=== PATIENT | male | born 1990 | race Caucasian/White ===

== ENCOUNTER 2018-03-23 18:27 | Emergency (ER) | payer OTHER, SELFPAY ==
[2018-03-23 18:27] VITALS: BP 137/90; PULSE 70; RESP 16; TEMP 36.8; O2SAT 99; BMI 27.1
--- NOTE | 2018-03-23 18:57 | RAD_ITS ---
STUDY: X-RAY - LEFT ANKLE REASON FOR EXAM: Male, 27 years old. Left-sided ankle pain and swelling after fall. TECHNIQUE: 3 view(s) of the ankle. COMPARISON: Prior comparison studies are not available for review at this time. FINDINGS: Normal visualized distal tibia and fibula. There is a small bony fragment located posterior to the distal tibia measuring about 2 mm in size. This may be the result of previous avulsion injury and could represent a small intra-articular loose body. Normal medial and lateral malleoli. Normal tibiotalar articulation and ankle mortise. Normal visualized talus and calcaneus. The intertarsal articulations are within normal limits. Visualized metatarsals have a grossly normal appearance. There is mild soft tissue swelling. There may be a small ankle effusion. RAD/Ankle min 3 Views IMPRESSION: 1. Questionable avulsion injury of the posterior distal tibia. This is of uncertain acuity. 2. Calcaneal spurs. 3. If there is still clinical concern for acute fracture, follow-up radiographs in 7-10 days maybe helpful in evaluating a healing radiographically occult fracture. Electronically Signed: Sia Rodríguez MD at 19:22 EDT , Service support ,
--- NOTE | 2018-03-23 19:51 | ED.VISSUMM ---
- ER Visit Summary Date of Service: 03/23/18 Chief Complaint: Left ankle injury History of Present Illness: The patient is a 27 M who jumped off the back of a semi-trailer and rolled his left ankle today at work. He has pain and swelling mostly over the lateral aspect of the left ankle. Patient denies any other injury. He has increased pain with weightbearing. Physical Examination: Vital signs unremarkable. Patient is in no acute distress. Head neck examination was no sign of trauma. Heart is regular rate and rhythm. Lung sounds are clear. Lower extent examination was tenderness and edema over the lateral malleolus of the left ankle. He has strong distal pulses. There is no tenderness at the proximal fibula. Test Results: Left ankle x-rays reveal questionable avulsion of the posterior distal tibia, uncertain acuity. Emergency Department Course and Treatment: Patient declined anything for pain while here. X-rays were reviewed with him. We placed in a walking boot and is to be rechecked through [email or web address]. Treatment Plan: [] Disposition: Discharge Impression: Left ankle sprain with questionable posterior avulsion This note was generated with [employer] dictation software. It may contain incorrect words, spelling, and punctuation that were not noted in review of the chart prior to signing ED Disposition - Plan for ED Patient: Chief Complaint: Lower Extremity Injury Referrals: Care Physician,No Primary [Primary Care Provider] -
--- NOTE | 2018-03-23 19:52 | ED.DEP ---
ED Disposition - Plan for ED Patient: Disposition: Home or Assisted Living Chief Complaint: Lower Extremity Injury Instructions: ED Sprain Ankle W X Ray Referrals: DAINA LAMA [GROUP OF PHYSICIANS] - 3-5 Days
[2018-03-23 20:01] VITALS: BP 125/78; PULSE 80; RESP 14; O2SAT 99
--- NOTE | 2018-03-23 20:10 | NURSING ---
PATIENT REFUSED TO FILL OUT WORKMAN'S COMP PAPERWORK, MADE AWARE.
== END 2018-03-23 20:10 | disposition home or self-care (01) ==
PROVIDERS: Emergency Provider Emergency Medicine
DX: S93.402A Sprain of unspecified ligament of left ankle, initial encounter (principal); W17.89XA Other fall from one level to another, initial encounter; Y93.39 Activity, other involving climbing, rappelling and jumping off; Y92.89 Other specified places as the place of occurrence of the external cause; Y99.0 Civilian activity done for income or pay
CPT/HCPCS: 73610; 99283

== ENCOUNTER 2019-02-07 13:14 | Emergency (ER) | payer OTHER, SELFPAY ==
[2019-02-07 11:48] LABS: Absolute Neutrophil Count 4.1 X10^3/uL (2.0-7.7); Basophil# 0.02 X10^3/uL; Basophil% 0.3 % (0-1); Eosinophil# 0.09 X10^3/uL; Eosinophils% 1.4 % (0-5); Hematocrit 48.4 % (40-54); Hemoglobin 17.1 g/dl (13.0-16.5); Lymphocyte % 17.7 % (19-41); Mean Corp Hgb Conc 35.3 g/gl (32-36); Mean Corpuscular Hgb 29.7 pg (27.0-32.0); Mean Corpuscular Volume 84.2 fL (80-94); Mean Platelet Vol. 10.2 fl (6.2-12.0); Monocyte# 0.94 X10^3/uL; Monocyte% 15.1 % (0-10); Neutrophil # 4.05 X10^3/uL (2.7-7.7); Neutrophil % 65.3 % (47-70); POSITIVE COUNT NO; POSITIVE DIFFERENTIAL NO; POSITIVE MORPHOLOGY NO; Platelet Count 278 K/mm3 (150-450); RBC Distribution Width CV 13.2 % (11.6-14.6); RBC Distribution Width SD 40.4 fl (35.1-43.9); Red Blood Count 5.75 M/mm3 (4.6-6.2); White Blood Count 6.2 K/mm3 (4.4-11.0)
[2019-02-07 12:00] LABS: ALB/GLOB Ratio 1.5 RATIO (0.9-2.4); AST(SGOT) 21 U/L (15-37); Alanine Aminotransfer ALT/SGPT 61 U/L (16-61); Albumin, Serum 4.8 g/dL (3.2-5.0); Alkaline Phosphatase 75 U/L (45-117); Anion Gap 6 (5-15); BUN 14 mg/dL (7-18); BUN/Creat Ratio 12.2 RATIO (10-20); Calcium,Total 9.6 mg/dL (8.5-10.1); Chloride 102 mmol/L (98-107); Creatinine, Serum 1.15 mg/dL (0.70-1.30); EST Glomerular Filtration Rate 80 mL/min (>60); Est Glom Filt Rate - Afr Amer 96 mL/min (>60); Globulin 3.1 g/dL (2.2-4.2); Glucose 92 mg/dL (74-106); Potassium 4.6 mmol/L (3.5-5.1); Protein, Total 7.9 g/dL (6.4-8.2); Sodium Level 137 mmol/L (136-145)
[2019-02-07 13:15] VITALS: BP 160/111; PULSE 62; RESP 16; TEMP 36.4; O2SAT 100; BMI 27.8
--- NOTE | 2019-02-07 13:30 | CT_ITS ---
STUDY: CT ABDOMEN AND PELVIS WITH CONTRAST REASON FOR EXAM: Male, 28 years old. Epigastric pain. RADIATION DOSAGE (If Supplied By Facility): CTDIvol = ( 8.5 ) mGy, DLP = ( 745.96 ) mGycm TECHNIQUE: Transaxial images were obtained from the dome of the diaphragm to the symphysis pubis with oral contrast. 100CC IV/Oral Isovue 300 was administered. Sagittal and coronal images were reconstructed. Individualized dose optimization techniques were used for this CT. COMPARISON: None. FINDINGS: The visualized lung bases are unremarkable. The visualized portions of the heart are within normal limits. Normal liver. Normal gallbladder and extrahepatic biliary system. Normal spleen. Normal pancreas. Normal bilateral adrenal glands. Normal right kidney. Normal left kidney. There is a 3.8 cm x 5.4 cm x 3.3 cm inhomogeneous mass in the left side of the pelvis just cephalad to the bladder. This may represent adenopathy. There is a small hiatal hernia. Normal small intestine. Normal colon. The appendix is visualized and appears normal. Normal abdominal aorta. Normal inferior vena cava. There is borderline retroperitoneal lymphadenopathy with enlarged nodes no greater than 10mm in the short axis diameter. Normal urinary bladder. There is a small umbilical hernia containing fat. There is straightening of the normal lumbar lordosis. Schmorl's node seen in the superior endplate of the L5 and L2 vertebrae. CT/Abdomen/Pelvis WITH Contrast IMPRESSION: 3.8 cm x 5.4 cm x 3.3 cm inhomogeneous solid mass with cystic changes in the left side of the pelvis just cephalad to the bladder. This may represent adenopathy. A scrotal ultrasound is recommended. Electronically Signed: Misbah Junior, at 15:07 EDT , Service support ,
[2019-02-07 14:42] LABS: Lipase 81 U/L (73-393)
--- NOTE | 2019-02-07 15:29 | US_ITS ---
STUDY: SCROTUM ULTRASOUND REASON FOR EXAM: Male, 28 years old. Abdominal and pelvic adenopathy/mass seen on CT TECHNIQUE: Ultrasound evaluation of the scrotum was performed with color Doppler and static dougherty-scale imaging. COMPARISON: CT abdomen and pelvis performed earlier the same day. FINDINGS: RIGHT TESTICLE INTRATESTICULAR: There is a normal size of the right testicle. The right testicle measures 4.6 x 3.3 x 2.6 cm. There is a homogenous echotexture. There is normal arterial and normal venous vascularity. There is no demonstrated right testicular mass or cyst. EXTRATESTICULAR: The epididymis is normal in size. The epididymis head measures 0.9 x 1.2 x 1.3 cm. There is normal vascularity of the epididymis. There is no demonstrated epididymal cystic structure. There is a small hydrocele. There is no demonstrated varicocele. There is no demonstrated extratesticular mass or cyst. LEFT TESTICLE INTRATESTICULAR: There is a normal size of the left testicle. The left testicle measures 4.3 x 3 x 2.6 cm. There is a homogenous echotexture. There is normal arterial and normal venous vascularity. There is no demonstrated left testicular mass or cyst. EXTRATESTICULAR: The epididymis is normal in size. The epididymis head measures 0.7 x 1.6 x 0.8 cm. There is normal vascularity of the epididymis. There is no demonstrated epididymal cystic structure. There is a small hydrocele. There is no demonstrated varicocele. There is no demonstrated extratesticular mass or cyst. US/Testicular with Arterial Flow IMPRESSION: There is no testicular or scrotal mass. Electronically Signed: Shaw Smith, at 16:47 EDT Tel , Service support ,
--- NOTE | 2019-02-07 18:38 | ED.VISSUMM ---
- ER Visit Summary Date of Service: 02/07/19 Chief Complaint: Abdominal pain History of Present Illness: The patient is a 28 M who sees Taniya Nugent. He reports his abdominal pain began 5 days ago. Is a continuous pain that waxes and wanes. He describes it as burning. It is worsened by laying down. Is 7 out of 10 at worst and 3-10 currently. Reports is relieved by eating. He said nausea without vomiting. No diarrhea. His last bowel was today. No melena or hematochezia. No dysuria frequency. No testicular pain or swelling. Physical Examination: Vitals: Stable. Afebrile. General: Well-nourished and well-developed. Head: Normocephalic atraumatic. Neck: Supple, no lymphadenopathy. No JVD. Nontender. Cardiovascular: Regular rate and rhythm. No murmurs. Respiratory: No respiratory distress. Clear to auscultation bilaterally. Abdominal: Soft, mild epigastric tenderness to palpation, nondistended, normal bowel sounds. No guarding, rebound, or peritoneal signs. : Normal circumcised male. No testicular tenderness or masses. Back: Nontender. Extremities: Nontender, no edema. Skin: Normal color, no rash. Neurologic: Alert and oriented ?3. Cranial nerves II through XII are intact. Normal strength and sensation. Psych: Normal affect. Test Results: CBC is marked for hemoglobin of 17.1 with lymphs lites of 18 monocytes 15. Chem-7 is normal. LFTs marked for a total bili 1.1. Lipase is normal. Clinical Impression(s) from Imaging Studies Abdomen/Pelvis CT 02/07/19 13:30 IMPRESSION: 3.8 cm x 5.4 cm x 3.3 cm inhomogeneous solid mass with cystic changes in the left side of the pelvis just cephalad to the bladder. This may represent adenopathy. A scrotal ultrasound is recommended. Electronically Signed: Misbah Junior, at 15:07 EDT , Service support , Testicular ultrasound is normal. Emergency Department Course and Treatment: Patient is resting comfortably. He refused pain or nausea medications. Treatment Plan: Patient was initially discussed with Dr. Miller who states that this is not in the right area of her lymphoma and asked that I speak with surgery. Patient was then discussed with Dr. Martinez who reviewed the CT himself. He suspects that this is a germ cell or dermoid tumor and asked that I order an alpha-fetoprotein and hCG. He also asked that I speak with Dr. Nielsen. The patient was discussed with Dr. Nielsen who asked that I also add an LDH. He will be discharged with instructions to follow-up with Dr. Martinez in Dr. Nielsen within 1 week. I do not think that the pain the patient has today has anything to do with this mass. The pain is in the epigastric region. It is worse at night when he lays down. Is relieved by food. I suspect that this is gastritis versus ulcer. He will be placed on Zantac. Given a prescription for [place] and Zofran for pain and nausea if needed. Return to the emergency department for any worsening symptoms. Disposition: To home in improved and stable condition. Impression: 1. Abdominal mass. 2. Abdominal pain, epigastric. This note was generated with [employer] dictation software. It may contain incorrect words, spelling, and punctuation that were not noted in review of the chart prior to signing ED Disposition - Plan for ED Patient: Instructions: ED PUD Vs Gastritis Prescriptions: Hydrocodone Bitart/Apap 5-325 [[place] 5MG-325MG] 1 tablet PO Q6H PRN PRN 3 Days #10 tablet PRN Reason: Pain Ondansetron [Zofran Odt] 4 mg PO Q8H PRN PRN #10 tablet PRN Reason: Nausea Ranitidine [Zantac] 300 mg PO DAILY #30 tablet Referrals: Johnnie Nielsen MD [STAFF PHYSICIAN] - 1 Week Evans Gomez MD [STAFF PHYSICIAN] - 1 Week
[2019-02-07 18:54] VITALS: BP 152/102; PULSE 64; RESP 18; O2SAT 96
[2019-02-07 20:06] LABS: LDH 158 U/L (87-241)
[2019-02-09 09:52] LABS: AFP, Tumor Marker 4.3 ng/mL (0.0-8.3); HCG BETA-SUBUNIT QUANT. < 1 mIU/mL (0-3)
== END 2019-02-07 19:02 | disposition home or self-care (01) ==
LOC: ED 14:06
PROVIDERS: Nurse Practitioner; Emergency Provider Emergency Medicine
DX: R19.06 Epigastric swelling, mass or lump (principal); R10.13 Epigastric pain; R11.0 Nausea
CPT/HCPCS: 74177; 76870; 80053; 82105; 83615; 83690; 84702; 85025; 93976; 99282; J7030; Q9967; A4216

== ENCOUNTER 2019-02-08 17:55 | Observation (INO) | payer OTHER, SELFPAY ==
[2019-02-07 13:15] VITALS: BMI 27.8
[2019-02-08 17:56] VITALS: BP 170/100; PULSE 72; RESP 16; TEMP 36.5; O2SAT 99; BMI 27.6
[2019-02-08 18:31] VITALS: BP 147/96; PULSE 65; RESP 18; O2SAT 100
[2019-02-08] MEDS: 0.9% Normal Saline 1,000 ML 1000 ML IV (18:39)
[2019-02-08] MEDS: Ondansetron 4 MG/2 ML Vial IV (18:46)
[2019-02-08] MEDS: Mag Hydrox/Al Hydrox/Simeth 30 ML UDC PO (18:47)
[2019-02-08 19:05] LABS: Absolute Lymphocyte Count 1.14 X10^3/ul (0.83-4.51); Absolute Neutrophil Count 4.8 X10^3/uL (2.0-7.7); Basophil# 0.02 X10^3/uL; Basophil% 0.3 % (0-1); Eosinophil# 0.15 X10^3/uL; Eosinophils% 2.2 % (0-5); Hematocrit 44.8 % (40-54); Lymphocyte # 1.14 X10^3/ul (4.0); Lymphocyte % 16.5 % (19-41); Mean Corp Hgb Conc 35.7 g/gl (32-36); Mean Corpuscular Hgb 29.6 pg (27.0-32.0); Mean Corpuscular Volume 82.8 fL (80-94); Monocyte# 0.83 X10^3/uL; Neutrophil # 4.78 X10^3/uL (2.7-7.7); Neutrophil % 68.9 % (47-70); Platelet Count 264 K/mm3 (150-450); RBC Distribution Width SD 39.1 fl (35.1-43.9); Red Blood Count 5.41 M/mm3 (4.6-6.2); White Blood Count 6.9 K/mm3 (4.4-11.0)
[2019-02-08 19:06] LABS: POSITIVE COUNT NO; POSITIVE DIFFERENTIAL NO; POSITIVE MORPHOLOGY NO
[2019-02-08 19:18] LABS: ALB/GLOB Ratio 1.4 RATIO (0.9-2.4); AST(SGOT) 16 U/L (15-37); Alanine Aminotransfer ALT/SGPT 46 U/L (16-61); Albumin, Serum 4.5 g/dL (3.2-5.0); Alkaline Phosphatase 72 U/L (45-117); Anion Gap 7 (5-15); BUN 15 mg/dL (7-18); BUN/Creat Ratio 12.7 RATIO (10-20); Chloride 104 mmol/L (98-107); Creatinine, Serum 1.18 mg/dL (0.70-1.30); EST Glomerular Filtration Rate 77 mL/min (>60); Est Glom Filt Rate - Afr Amer 93 mL/min (>60); Estimated Creatinine Clearance 101.38 ml/min; Globulin 3.2 g/dL (2.2-4.2); Glucose 99 mg/dL (74-106); Lipase 114 U/L (73-393); Potassium 3.7 mmol/L (3.5-5.1); Protein, Total 7.7 g/dL (6.4-8.2); Sodium Level 138 mmol/L (136-145)
[2019-02-08 19:44] LABS: Bacteria 0 SEEN /hpf (None Seen); Mucous, Urine 0 SEEN /hpf (<or=2+); Red Blood Cells-Urine 0 SEEN /hpf (0-5); Squamous Epithelial Cells - UA 0 SEEN /hpf (0-5)
[2019-02-08 19:53] VITALS: BP 142/92; PULSE 60; RESP 17; O2SAT 99
[2019-02-08] MEDS: Morphine 4 MG/ML Syringe IV (20:01)
[2019-02-08 20:19] LABS: Color, Urine Yellow (Yellow); Glucose, Dipstick Normal (Normal); Ketone-Dipstick Negative (Negative); Leukocyte Esterase-Dipstick Negative /ul (Negative); Nitrite-Dipstick Negative (Negative); Occult Blood-Urine Negative /ul (Negative); Protein-Dipstick Negative (Negative); Urine Bilirubin Dipstick Negative (Negative); Urine Clarity Clear (Clear); Urine Urobilinogen Normal (Normal)
--- NOTE | 2019-02-08 20:26 | PCM.HP.STD ---
Problem List (1) Abdominal pain Status: Acute History of Present Illness Date of Admission: 02/08/19 Chief Complaint: abdominal pain The patient is a 28 year old M with no significant significant past medical history and who was at the ED on 02/07/2019 with abdominal pain and found to have a cystic mass on the left side of the pelvis returning with persistent excruciating sharp burning periumbilical abdominal pain on 02/08/2019. His pain radiates to his back. He has had this pain since 6 days ago. He denies any aggravating or ameliorating factors to his pain. He is unable to associate food with the pain. Initially he had some diarrhea with this pain. His diarrhea has since resolved. Also he has episodic nausea. He forced himself to vomit one time thinking that the pain would go away. However the pain persisted. He has tried Tylenol, advil, and Zantac without any real relief from the pain. At this visit on 02/07/2019 he was discharged home on [place], Zofran and Zantac. On his current visit (02/08/2019) Emergency Department doctor reportedly discussed the case with Dr. Gomez who accepted to follow the patient and to do an endoscopy. Per emergency department doctor, General Surgery did not think that patient's pain is from his left sided cystic mass found on CT. At emergency department patient was given morphine, Zofran and GI cocktail. Past Medical History Medical History: Medical History (Last Updated 02/08/19 @ 21:14 by Zan Liao MD) Denies any medical history Allergies No Known Allergies Allergy (Verified 02/08/19 17:58) Home Medications: Ambulatory Orders Medication Instructions Recorded Hydrocodone Bitart/Apap 5-325 1 tablet PO Q6H PRN PRN 3 Days #10 02/07/19 [[place] 5MG-325MG] tablet Ondansetron [Zofran Odt] 4 mg PO Q8H PRN PRN #10 tablet 02/07/19 Ranitidine [Zantac] 300 mg PO DAILY #30 tablet 02/07/19 Surgical History: - - Bilateral knee arthroscopy Lives: With Family Smoking Status: Former smoker Alcohol: Occasional - 3-4 drinks on weekends Review of Systems Constitutional: Reports: Anorexia. Denies: Chills, Fever, Weight Change HEENT: Denies: Head Aches, Sinus Congestion, Sinus Drainage Cardiovascular: Denies: Chest Pain, Palpitations Respiratory: Denies: Cough, Shortness of breath at rest, Sputum production Gastrointestinal: Reports: Abdominal Pain, Diarrhea - Transient, now resolved., Nausea, Vomiting - One-time when he forced himself to vomit. Genitourinary: Denies: Dysuria Musculoskeletal: Denies: Joint Pain, Joint Tenderness Skin: Denies: Rash, Wounds Neurological: Denies: Numbness, Tingling, Focal weakness Psychiatric: Denies: Anxiety, Depression, Homicidal Ideations, Suicidal Ideations Hematologic/ Lymphatic: Denies: Easy Bruising, Easy Bleeding VTE Information - Inpt Only VTE Present on Admission: No VTE Mechan Device Prophylaxis: None VTE Pharm Prophylaxis ordered?: No Reason prophylaxis not ordered:: Treatment Not Indicated - Low risk. Patient Problems: Active and Suspected Problems (Last Updated 02/08/19 @ 21:14 by Zan Liao MD) Abdominal pain (Acute) - Physical Exam General: Alert, Oriented x3, Cooperative HEENT: Atraumatic, PERRLA, EOMI, Normocephalic Neck: Supple, No JVD, Negative Carotid Bruits Lungs: Clear to auscultation, Normal air movement Cardiovascular: Regular rate, No murmurs Abdomen: Bowel Sounds Present, Soft, Non Tender Extremities: No edema, Capillary Refill Less than 3 Seconds Skin: No rashes, No breakdown Musculoskeletal: No Tenderness to Palpation of Joints or Extremities Neurological: Neuro grossly intact Psych/Mental Status: Normal Affect, Appropriate Vital Signs Temp Pulse Resp BP Pulse Ox 97.7 F L 60 17 142/92 H 99 02/08/19 17:56 02/08/19 19:53 02/08/19 19:53 02/08/19 19:53 02/08/19 19:53 Oxygen Delivery Method Room Air Weight: 92.3 kg Body Mass Index (BMI) 27.6 Laboratory Tests Past 24 Hrs 02/08/19 02/08/19 02/08/19 18:50 18:50 19:20 WBC 6.9 RBC 5.41 Hgb 16.0 Hct 44.8 MCV 82.8 MCH 29.6 MCHC 35.7 RDW 13.0 RDW Differential 39.1 Plt Count 264 MPV 10.0 Immature Gran % (Auto) 0.100 Neut % (Auto) 68.9 Lymph % (Auto) 16.5 L Holt % (Auto) 12.0 H Eos % (Auto) 2.2 Baso % (Auto) 0.3 Absolute Neuts (auto) 4.8 Absolute Lymphs (auto) 1.14 Total Counted Not Reportable Sodium 138 Potassium 3.7 Chloride 104 Carbon Dioxide 27.0 Anion Gap 7 BUN 15 Creatinine 1.18 Estim Creat Clear Calc 101.38 Est GFR (MDRD) Af Amer 93 Est GFR (MDRD) Non-Af 77 BUN/Creatinine Ratio 12.7 Glucose 99 Calcium 9.0 Total Bilirubin 0.90 AST 16 ALT 46 Alkaline Phosphatase 72 Total Protein 7.7 Albumin 4.5 Globulin 3.2 Albumin/Globulin Ratio 1.4 Lipase 114 Urine Color Yellow Urine Clarity Clear Urine pH 8.0 Ur Specific [place] 1.010 Urine Protein Negative Urine Glucose (UA) Normal Urine Ketones Negative Urine Occult Blood Negative Urine Nitrite Negative Urine Bilirubin Negative Urine Urobilinogen Normal Ur Leukocyte Esterase Negative Urine RBC Pending Urine WBC Pending Ur Squamous Epith Cells Pending Urine Bacteria Pending Urine Mucus Pending Assessment/Plan All Active Problems (Last Updated 02/08/19 @ 21:14 by Zan Liao MD) Abdominal pain (Acute) The patient is a 28 year old M with no significant significant past medical history and who was at the ED on 02/07/2019 with abdominal pain and found to have a cystic mass on the left side of the pelvis now (02/08/2019) returning with persistent excruciating sharp burning abdominal pain. Periumbilical pain Different diagnosis include gastritis; peptic ulcer disease; esophagitis or other. Supportive treatment with IV morphine as needed, lactated Ringer's; Zofran as needed. Protonix IV 40 mg twice daily ordered. We will keep patient n.p.o. for possible endoscopy. Dr. Gomez, general surgeon consulted. Pelvic mass CT of abdomen and pelvis showed a pelvis mass cephalad to the bladder. CT was independently reviewed. I agree with radiologist interpretation. Discussed with emergency department doctor who reported that per conversation with Dr. Gomez patient may need to follow up at outside hospital. Review of records: An ultrasound of his scrotum was done following the CT of his abdomen on 02/07/2019. Alpha-fetoprotein, HCG and LDH was ordered on his visit on 02/07/2019. LDH was unremarkable The results of alpha-fetoprotein and hCG are pending. Lipase was unremarkable. On the visit on 02/07/2019 patient was discharged home and he was supposed to follow-up with Dr. Gomez and Dr. Nielsen, who the case was also discussed with, in 1 week time. Will defer to general surgery at this time. DVT prophylaxis Low risk Encouraged to ambulate. Code Visit OBSV E&M: 04803 Initial observation care L3
[2019-02-08 20:28] LABS: White Blood Cells 0-5 SEEN /hpf (0-5)
--- NOTE | 2019-02-08 20:48 | ED.DCSUM_ITS ---
- ER Visit Summary Date of Service: 02/08/19 Chief Complaint: Abdominal pain History of Present Illness: The patient is a 28 M with upper abdominal pain. This has been going on for days. Worse over the last 6 hours. It is in his epigastric area, right upper quadrant, and periumbilical regions. He reports decreased sleep and decreased appetite. He was seen yesterday for abdominal pain. He had imaging that showed a left pelvic mass. This was discussed with oncology, surgery, and urology. He will need continued labs, imaging, and specialty evaluation for this mass. It was thought that his upper abdominal pain was related to gastritis or an ulcer. He has been taking Zantac and [place] with no relief. Denies any new or different symptoms, however the pain is worsening. He never had this pain in the past. Physical Examination: Afebrile and vital signs unremarkable except for an initial blood pressure of 170/100. Patient appears very uncomfortable. Heart regular. Lungs clear. Abdomen is soft and nontender however. Skin appears normal in color without pallor or jaundice. Test Results: CBC, CMP, lipase, urinalysis unremarkable. Emergency Department Course and Treatment: Patient's exam and symptoms are concerning for peptic ulcer, gastritis, reflux. He was treated with fluids, Zofran, Pepcid, and a GI cocktail. Pain improved somewhat but it was still 7 out of 10. He was treated with morphine. Patient's workup was unremarkable. I did not believe a repeat CAT scan would be informative, and I discussed this with the family. I spoke with Dr. Gomez. Who will be available to scope the patient in the hospital. I spoke with the hospitalist who will admit for further care. Treatment Plan: As above Disposition: Admission Impression: 1. Abdominal pain This note was generated with [employer] dictation software. It may contain incorrect words, spelling, and punctuation that were not noted in review of the chart prior to signing ED Disposition - Plan for ED Patient: Referrals: Care Physician,No Primary [Primary Care Provider] -
[2019-02-08 21:27] VITALS: BMI 27.1; BMI 27.2
[2019-02-08 21:36] VITALS: BP 153/104; PULSE 65; RESP 16; TEMP 37.3; O2SAT 98
[2019-02-08] MEDS: 0.9% NaCl Peripheral Flush Adult/Peds IV (22:04)
[2019-02-08] MEDS: Lactated Ringers 1,000 ML 75 ML IV (22:10)
[2019-02-08 22:16] VITALS: BMI 27.1
[2019-02-09] VITALS (8 sets, daily range): BP systolic 125–147; BP diastolic 73–108; PULSE 54–92; RESP 16–18; TEMP 36.3–36.9; O2SAT 94–99; BMI 27.1
--- NOTE | 2019-02-09 | IMM_PTH ---
PATIENT: KI STAPLETON LOC: MS3 U#:[id number] AGE/SX: 28/M ROOM: MS301 RE02/08/[address]: Dr. Oumar Warner MD : 1990 BED: 1 DIS: 02/09/2019 SPEC #: [id number] RECD: 02/11/19 11:54 STATUS: ZURI REQ #: [id number] SAUMYA: 02/09/19 00:[address]: Evans Gomez DEPT: IMMUNOHISTOCHEMISTRY RECD BY: Zakia Barcenas ENTERED: 02/11/19 11:55 SP TYPE: IMMUNO OTHR DR: MD Dr. Oumar Scott MD No Primary Care Phys Tissues: B - Stomach, NOS Procedures: H Pylori (initial) PHYSICIAN & INSTITUTION [place] [id number] SPECIMEN INFORMATION: Tissue Source: B - Antral biopsy Clinical Info: Abdomen pain Specimen Number: [id number] CPT code: 92968 METHODOLOGY: Deparaffinized sections of prefer/formalin-fixed tissue or PAP/DQ stained slides are incubated with monoclonal/polyclonal antibodies/oligonucleotide probes. Localization is made via biotin free immunoperoxidase method. Appropriate controls are performed and reacted as expected. Results on target cell population are indicated in the following table: RESULTS: ANTIBODY / CLONE RESULT Block B H Pylori (polyclonal) negative These tests were developed and their performance characteristics determined by [facility]. They may not have been cleared or approved by the U.[place]. Food and Drug Administration. The FDA has determined that such clearance or approval is not necessary. INTERPRETATION: B. Antral biopsy: Negative for Helicobacter pylori organisms. SJ:sheryl 02/11/19
--- NOTE | 2019-02-09 07:22 | PCM.CONS.GEN ---
Reason for Consult Date of Consultation: 02/08/19 Reason for Consultation: epigastric abdominal pain History of Present Illness: The patient is a 28 year old M who has noted epigastric abdominal pain for the past 7-10 days. The pain is centered just superior to the umbilicus. He notes it to be a constant burning sensation. The discomfort seems worse overnight. He denies fever, chills, pain worse with eating and notes that pain decreases somewhat after eating. He vomited one time which was non blood liquid. He denies melena or hematochezia. he initially presented emergency department on February 07, 2019. He was referred her after he saw Taniya Rangel in primary care office. Laboratory studies were obtained that were unremarkable.a CT scan of the abdomen and pelvis was obtained. This demonstrated: INDINGS: The visualized lung bases are unremarkable. The visualized portions of the heart are within normal limits. Normal liver. Normal gallbladder and extrahepatic biliary system. Normal spleen. Normal pancreas. Normal bilateral adrenal glands. Normal right kidney. Normal left kidney. There is a 3.8 cm x 5.4 cm x 3.3 cm inhomogeneous mass in the left side of the pelvis just cephalad to the bladder. This may represent adenopathy. There is a small hiatal hernia. Normal small intestine. Normal colon. The appendix is visualized and appears normal. Normal abdominal aorta. Normal inferior vena cava. There is borderline retroperitoneal lymphadenopathy with enlarged nodes no greater than 10mm in the short axis diameter. Normal urinary bladder. There is a small umbilical hernia containing fat. There is straightening of the normal lumbar lordosis. Schmorl's node seen in the superior endplate of the L5 and L2 vertebrae. CT/Abdomen/Pelvis WITH Contrast IMPRESSION: 3.8 cm x 5.4 cm x 3.3 cm inhomogeneous solid mass with cystic changes in the left side of the pelvis just cephalad to the bladder. This may represent adenopathy. A scrotal ultrasound is recommended. Electronically Signed: Misbah Junior, at 15:07 EDT , Service support , I was contacted by the emergency department physician-Jossue Pineda -my review of the CT scan demonstrated a smooth mass which was felt to be in the left iliac retroperitoneal area. It appeared inhomogeneous. There were no other enlarged lymph nodes and no signs of inflammation around the site. It was well-circumscribed. This may me consider a Wolffian duct remnant tumor. a testicular ultrasound was obtained which was unremarkable. I asked that alpha-fetoprotein and beta hCG levels be obtained. The patient was discharged home to return the following day with continued/worsening abdominal pain. Laboratory studies still remained unremarkable. the patient was given a GI cocktail which gave some improvement. he is being given IV Protonix currently - 40 mg IV every 12. the patient denies constitutional symptoms-fever, night sweats, he has lost 6 pounds of weight in the last week but otherwise no generalized weight loss. 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 Past Medical History Medical History: Medical History (Last Updated 02/08/19 @ 21:14 by Zan Liao MD) Denies any medical history Allergies No Known Allergies Allergy (Verified 02/08/19 17:58) Home Medications: Ambulatory Orders Medication Instructions Recorded Hydrocodone Bitart/Apap 5-325 1 tablet PO Q6H PRN PRN 3 Days #10 02/07/19 [[place] 5MG-325MG] tablet Ondansetron [Zofran Odt] 4 mg PO Q8H PRN PRN #10 tablet 02/07/19 Ranitidine [Zantac] 300 mg PO DAILY #30 tablet 02/07/19 Surgical History: - - Bilateral knee arthroscopy Lives: With Family Smoking Status: Former smoker Alcohol: Occasional - 3-4 drinks on weekends Review of Systems Constitutional: Denies: Chills, Fever, Weight Change HEENT: Denies: Head Aches, Sinus Congestion, Sinus Drainage Cardiovascular: Denies: Chest Pain, Palpitations Respiratory: Denies: Cough, Shortness of breath at rest, Sputum production Gastrointestinal: Reports: Abdominal Pain, Nausea. Denies: Vomiting Genitourinary: Denies: Dysuria Musculoskeletal: Denies: Joint Pain, Joint Tenderness Skin: Denies: Rash, Wounds Neurological: Denies: Numbness, Tingling, Focal weakness Psychiatric: Denies: Anxiety, Depression, Homicidal Ideations, Suicidal Ideations Hematologic/ Lymphatic: Denies: Easy Bruising, Easy Bleeding Patient Problems: Active and Suspected Problems (Last Updated 02/08/19 @ 21:14 by Zan Liao MD) Abdominal pain (Acute) - Physical Exam General: Alert, Oriented x3, Cooperative Lungs: Clear to auscultation, Normal air movement Cardiovascular: Regular rate, No murmurs Abdomen: Bowel Sounds Present - the patient was having his burning pain episodes he noted no discomfort to palpation, Soft, Non Tender Vital Signs Temp Pulse Resp BP Pulse Ox 98.5 F 60 16 139/94 H 97 02/09/19 06:35 02/09/19 06:35 02/09/19 06:35 02/09/19 06:35 02/09/19 06:35 Oxygen Delivery Method Room Air Weight: 91 kg Body Mass Index (BMI) 27.1 Intake and Output for Last 24 Hours 02/07/19 02/08/19 02/09/19 23:59 23:59 23:59 Intake Total 850 / 850 Balance 850 / 850 Laboratory Tests Past 24 Hrs 02/08/19 02/08/19 02/08/19 18:50 18:50 19:20 WBC 6.9 RBC 5.41 Hgb 16.0 Hct 44.8 MCV 82.8 MCH 29.6 MCHC 35.7 RDW 13.0 RDW Differential 39.1 Plt Count 264 MPV 10.0 Immature Gran % (Auto) 0.100 Neut % (Auto) 68.9 Lymph % (Auto) 16.5 L [place] % (Auto) 12.0 H Eos % (Auto) 2.2 Baso % (Auto) 0.3 Absolute Neuts (auto) 4.8 Absolute Lymphs (auto) 1.14 Total Counted Not Reportable Sodium 138 Potassium 3.7 Chloride 104 Carbon Dioxide 27.0 Anion Gap 7 BUN 15 Creatinine 1.18 Estim Creat Clear Calc 101.38 Est GFR (MDRD) Af Amer 93 Est GFR (MDRD) Non-Af 77 BUN/Creatinine Ratio 12.7 Glucose 99 Calcium 9.0 Total Bilirubin 0.90 AST 16 ALT 46 Alkaline Phosphatase 72 Total Protein 7.7 Albumin 4.5 Globulin 3.2 Albumin/Globulin Ratio 1.4 Lipase 114 Urine Color Yellow Urine Clarity Clear Urine pH 8.0 Ur Specific [place] 1.010 Urine Protein Negative Urine Glucose (UA) Normal Urine Ketones Negative Urine Occult Blood Negative Urine Nitrite Negative Urine Bilirubin Negative Urine Urobilinogen Normal Ur Leukocyte Esterase Negative Urine RBC 0 SEEN Urine WBC 0-5 SEEN Ur Squamous Epith Cells 0 SEEN Urine Bacteria 0 SEEN Urine Mucus 0 SEEN Assessment/Plan All Active Problems (Last Updated 02/08/19 @ 21:14 by Zan Liao MD) Abdominal pain (Acute) abdominal pain, left pelvic mass. I plan to perform an EGD to assess for PUD. The patient understands the risks, benefits, alternatives and possible complications and consents. Left pelvic mass- Uncertain etiology The mass in the left pelvis was described as possibly an enlarged lymph node fire etiology. By description, this mass is smooth and does not appear to be invading adjacent structures to me appears to be in the retroperitoneum and displacing the sigmoid colon medially and is inhomogeneous. My initial opinion was possibly a teratoma. Attempt interview CT scan images for similar appearing abnormalities was unsuccessful. other possibilities include ancient schwannoma, myolipoma and retroperitoneal sarcomas. alpha-fetoprotein and beta-hCG are currently pending. The patient denies constitutional symptoms that would make lymphoma possibility and I appreciate no other adenopathy. at this point I plan to contact surgical oncology for their opinion. I would obtain an MRI of the abdomen and pelvis with and without contrast to better characterize this mass. While I believe this is likely a benign mass, I would wish to talk to our local radiologist. I'm not certain that biopsy is indicated versus just excision of the abnormality en bloc.
--- NOTE | 2019-02-09 07:27 | CON.PCM_ITS ---
Reason for Consult Date of Consultation: 02/08/19 Reason for Consultation: epigastric abdominal pain History of Present Illness: The patient is a 28 year old M who has noted epigastric abdominal pain for the past 7-10 days. The pain is centered just superior to the umbilicus. He notes it to be a constant burning sensation. The discomfort seems worse overnight. He denies fever, chills, pain worse with eating and notes that pain decreases somewhat after eating. He vomited one time which was non blood liquid. He denies melena or hematochezia. he initially presented emergency department on February 07, 2019. He was referred her after he saw Taniya Rangel in primary care office. Laboratory studies were obtained that were unremarkable.a CT scan of the abdomen and pelvis was obtained. This demonstrated: INDINGS: The visualized lung bases are unremarkable. The visualized portions of the heart are within normal limits. Normal liver. Normal gallbladder and extrahepatic biliary system. Normal spleen. Normal pancreas. Normal bilateral adrenal glands. Normal right kidney. Normal left kidney. There is a 3.8 cm x 5.4 cm x 3.3 cm inhomogeneous mass in the left side of the pelvis just cephalad to the bladder. This may represent adenopathy. There is a small hiatal hernia. Normal small intestine. Normal colon. The appendix is visualized and appears normal. Normal abdominal aorta. Normal inferior vena cava. There is borderline retroperitoneal lymphadenopathy with enlarged nodes no greater than 10mm in the short axis diameter. Normal urinary bladder. There is a small umbilical hernia containing fat. There is straightening of the normal lumbar lordosis. Schmorl's node seen in the superior endplate of the L5 and L2 vertebrae. CT/Abdomen/Pelvis WITH Contrast IMPRESSION: 3.8 cm x 5.4 cm x 3.3 cm inhomogeneous solid mass with cystic changes in the left side of the pelvis just cephalad to the bladder. This may represent adenopathy. A scrotal ultrasound is recommended. Electronically Signed: Misbah Junior, at 15:07 EDT , Service support , I was contacted by the emergency department physician-Jossue Pineda -my review of the CT scan demonstrated a smooth mass which was felt to be in the left iliac retroperitoneal area. It appeared inhomogeneous. There were no other enlarged lymph nodes and no signs of inflammation around the site. It was well- circumscribed. This may me consider a Wolffian duct remnant tumor. a testicular ultrasound was obtained which was unremarkable. I asked that alpha-fetoprotein and beta hCG levels be obtained. The patient was discharged home to return the following day with continued/worsening abdominal pain. Laboratory studies still remained unremarkable. the patient was given a GI cocktail which gave some improvement. he is being given IV Protonix currently - 40 mg IV every 12. the patient denies constitutional symptoms-fever, night sweats, he has lost 6 pounds of weight in the last week but otherwise no generalized weight loss. 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 Past Medical History Medical History: Medical History (Last Updated 02/08/19 @ 21:14 by Zan Liao MD) Denies any medical history Allergies No Known Allergies Allergy (Verified 02/08/19 17:58) Home Medications: Ambulatory Orders Medication Instructions Recorded Hydrocodone Bitart/Apap 5-325 1 tablet PO Q6H PRN PRN 3 Days #10 02/07/19 [[place] 5MG-325MG] tablet Ondansetron [Zofran Odt] 4 mg PO Q8H PRN PRN #10 tablet 02/07/19 Ranitidine [Zantac] 300 mg PO DAILY #30 tablet 02/07/19 Surgical History: - - Bilateral knee arthroscopy Lives: With Family Smoking Status: Former smoker Alcohol: Occasional - 3-4 drinks on weekends Review of Systems Constitutional: Denies: Chills, Fever, Weight Change HEENT: Denies: Head Aches, Sinus Congestion, Sinus Drainage Cardiovascular: Denies: Chest Pain, Palpitations Respiratory: Denies: Cough, Shortness of breath at rest, Sputum production Gastrointestinal: Reports: Abdominal Pain, Nausea. Denies: Vomiting Genitourinary: Denies: Dysuria Musculoskeletal: Denies: Joint Pain, Joint Tenderness Skin: Denies: Rash, Wounds Neurological: Denies: Numbness, Tingling, Focal weakness Psychiatric: Denies: Anxiety, Depression, Homicidal Ideations, Suicidal Ideations Hematologic/ Lymphatic: Denies: Easy Bruising, Easy Bleeding Patient Problems: Active and Suspected Problems (Last Updated 02/08/19 @ 21:14 by Zan Liao MD) Abdominal pain (Acute) - Physical Exam General: Alert, Oriented x3, Cooperative Lungs: Clear to auscultation, Normal air movement Cardiovascular: Regular rate, No murmurs Abdomen: Bowel Sounds Present - the patient was having his burning pain episodes he noted no discomfort to palpation, Soft, Non Tender Vital Signs Temp Pulse Resp BP Pulse Ox 98.5 F 60 16 139/94 H 97 02/09/19 06:35 02/09/19 06:35 02/09/19 06:35 02/09/19 06:35 02/09/19 06:35 Oxygen Delivery Method Room Air Weight: 91 kg Body Mass Index (BMI) 27.1 Intake and Output for Last 24 Hours 02/07/19 02/08/19 02/09/19 23:59 23:59 23:59 Intake Total 850 / 850 Balance 850 / 850 Laboratory Tests Past 24 Hrs 02/08/19 02/08/19 02/08/19 18:50 18:50 19:20 WBC 6.9 RBC 5.41 Hgb 16.0 Hct 44.8 MCV 82.8 MCH 29.6 MCHC 35.7 RDW 13.0 RDW Differential 39.1 Plt Count 264 MPV 10.0 Immature Gran % (Auto) 0.100 Neut % (Auto) 68.9 Lymph % (Auto) 16.5 L [place] % (Auto) 12.0 H Eos % (Auto) 2.2 Baso % (Auto) 0.3 Absolute Neuts (auto) 4.8 Absolute Lymphs (auto) 1.14 Total Counted Not Reportable Sodium 138 Potassium 3.7 Chloride 104 Carbon Dioxide 27.0 Anion Gap 7 BUN 15 Creatinine 1.18 Estim Creat Clear Calc 101.38 Est GFR (MDRD) Af Amer 93 Est GFR (MDRD) Non-Af 77 BUN/Creatinine Ratio 12.7 Glucose 99 Calcium 9.0 Total Bilirubin 0.90 AST 16 ALT 46 Alkaline Phosphatase 72 Total Protein 7.7 Albumin 4.5 Globulin 3.2 Albumin/Globulin Ratio 1.4 Lipase 114 Urine Color Yellow Urine Clarity Clear Urine pH 8.0 Ur Specific [place] 1.010 Urine Protein Negative Urine Glucose (UA) Normal Urine Ketones Negative Urine Occult Blood Negative Urine Nitrite Negative Urine Bilirubin Negative Urine Urobilinogen Normal Ur Leukocyte Esterase Negative Urine RBC 0 SEEN Urine WBC 0-5 SEEN Ur Squamous Epith Cells 0 SEEN Urine Bacteria 0 SEEN Urine Mucus 0 SEEN Assessment/Plan All Active Problems (Last Updated 02/08/19 @ 21:14 by Zan Liao MD) Abdominal pain (Acute) abdominal pain, left pelvic mass. I plan to perform an EGD to assess for PUD. The patient understands the risks, benefits, alternatives and possible complications and consents. Left pelvic mass- Uncertain etiology The mass in the left pelvis was described as possibly an enlarged lymph node fire etiology. By description, this mass is smooth and does not appear to be invading adjacent structures to me appears to be in the retroperitoneum and displacing the sigmoid colon medially and is inhomogeneous. My initial opinion was possibly a teratoma. Attempt interview CT scan images for similar appearing abnormalities was unsuccessful. other possibilities include ancient schwannoma, myolipoma and retroperitoneal sarcomas. alpha-fetoprotein and beta-hCG are currently pending. The patient denies constitutional symptoms that would make lymphoma possibility and I appreciate no other adenopathy. at this point I plan to contact surgical oncology for their opinion. I would obtain an MRI of the abdomen and pelvis with and without contrast to better characterize this mass. While I believe this is likely a benign mass, I would wish to talk to our local radiologist. I'm not certain that biopsy is indicated versus just excision of the abnormality en bloc.
--- NOTE | 2019-02-09 07:35 | EGD_PTH ---
PATIENT: KI STAPLETON LOC: [facility]3 U#:[id number] AGE/SX: 28/M ROOM: [facility]301 RE02/08/[address]: Dr. Oumar Warner MD : 1990 BED: 1 DIS: 02/09/2019 SPEC #: [id number] RECD: 02/09/19 08:14 STATUS: ZURI REQ #: [id number] SAUMYA: 02/09/19 07:[address]: Evans Gomez DEPT: SURGICAL PATHOLOGY RECD BY: Amanuel Mulligan ENTERED: 02/10/19 09:20 SP TYPE: EGD BIOPSY OT DR: MD Dr. Oumar Scott MD No Primary Care Phys Tissues: A - Jejunum, NOS B - Gastric mucous membrane C - Gastric mucous membrane Procedures: Special Stain Group II Surgery Specimen Level IV Alcian Blue/PAS (control) HEADER OPERATION: EGD ([facility] [place]) PRE-OP DIAGNOSIS: Abdomen pain TISSUE SUBMITTED: A - Jejunum biopsy, B - Antral biopsy, C - GE junction biopsy MICROSCOPIC DIAGNOSIS A. Jejunum, biopsy: A fragment of small intestinal mucosa, no pathologic diagnosis. B. Antral biopsy: Mild gastritis. See microscopic description and comment. C. GE junction, biopsy: A fragment of gastric mucosa with moderate chronic inflammation and mild acute inflammation. Intestinal metaplasia (goblet cell metaplasia) is not identified. See comment. SJ:sheryl 02/11/19 COMMENT B. The results of immunohistochemistry for Helicobacter pylori will be reported separately ([id number]). C. Alcian blue/PAS stain with matched control is used in the evaluation of the specimen. MICROSCOPIC DESCRIPTION Slides are reviewed. B. The specimen shows fragments of gastric mucosa with chronic inflammatory cell infiltrates in the lamina propria consisting of lymphocytes and plasma cells, consistent with mild chronic gastritis. GROSS DESCRIPTION A - Received in fixative is one container labeled with the patient's name and designated jejunum biopsy. The specimen consists of one irregular fragment of light thorne soft tissue that measures 0.6 x 0.2 x 0.1 cm. The specimen is totally submitted in one cassette. B - Received in fixative is one container labeled with the patient's name and designated antral biopsy. The specimen consists of one irregular fragment of light thorne soft tissue that measures 0.3 x 0.3 x 0.1 cm. The specimen is totally submitted in one cassette. C - Received in fixative is one container labeled with the patient's name and designated GE junction biopsy. The specimen consists of one irregular fragment of light thorne soft tissue that measures 0.5 x 0.2 x 0.1 cm. The specimen is totally submitted in one cassette. / SJ:rg 02/10/19 TC:2 CPT: 69869 x3, [id number]
--- NOTE | 2019-02-09 07:47 | OP.ENDO_ITS ---
02/09/2019 No Primary Care Physician Re : Upper GI endoscopy procedure for Chadd Wilson Dear Care Physician This procedure was performed on Saturday, February 09, 2019. My impressions and recommendations are as follows: Impressions : - Normal examined jejunum. Biopsied. - Erythematous duodenopathy. - Gastritis. Biopsied. - Normal gastroesophageal junction. - Non-severe reflux esophagitis. Recommendations : - Await pathology results. - Use Prilosec (omeprazole) 40 mg PO daily. - Continue present medications. My findings are described in the full procedure note, which is enclosed. If I can be of further assistance, please feel free to contact me at Doctor phone number(s): , Work: . Sincerely, Evans Gomez MD 02/09/2019 7:46:48 AM This report has been signed electronically.
--- NOTE | 2019-02-09 09:12 | PN.SURG_ITS ---
Patient Problems: Active and Suspected Problems (Last Updated 02/08/19 @ 21:14 by Zan Liao MD) Abdominal pain (Acute) Subjective: pain slightly better this morning, still a burning sensation - Physical Exam General: Alert, Oriented x3, Cooperative Lungs: Clear to auscultation, Normal air movement Cardiovascular: Regular rate, No murmurs Abdomen: Bowel Sounds Present, Soft, Non Tender Vital Signs Temp Pulse Resp BP Pulse Ox 97.4 F L 71 18 136/73 H 97 02/09/19 08:15 02/09/19 08:15 02/09/19 08:15 02/09/19 08:15 02/09/19 08:15 Oxygen Delivery Method Room Air Weight: 91 kg Body Mass Index (BMI) 27.1 Intake and Output for Last 24 Hours 02/07/19 02/08/19 02/09/19 23:59 23:59 23:59 Intake Total 1250 / 1250 Balance 1250 / 1250 Laboratory Tests Past 24 Hrs 02/08/19 02/08/19 02/08/19 18:50 18:50 19:20 WBC 6.9 RBC 5.41 Hgb 16.0 Hct 44.8 MCV 82.8 MCH 29.6 MCHC 35.7 RDW 13.0 RDW Differential 39.1 Plt Count 264 MPV 10.0 Immature Gran % (Auto) 0.100 Neut % (Auto) 68.9 Lymph % (Auto) 16.5 L [place] % (Auto) 12.0 H Eos % (Auto) 2.2 Baso % (Auto) 0.3 Absolute Neuts (auto) 4.8 Absolute Lymphs (auto) 1.14 Total Counted Not Reportable Sodium 138 Potassium 3.7 Chloride 104 Carbon Dioxide 27.0 Anion Gap 7 BUN 15 Creatinine 1.18 Estim Creat Clear Calc 101.38 Est GFR (MDRD) Af Amer 93 Est GFR (MDRD) Non-Af 77 BUN/Creatinine Ratio 12.7 Glucose 99 Calcium 9.0 Total Bilirubin 0.90 AST 16 ALT 46 Alkaline Phosphatase 72 Total Protein 7.7 Albumin 4.5 Globulin 3.2 Albumin/Globulin Ratio 1.4 Lipase 114 Urine Color Yellow Urine Clarity Clear Urine pH 8.0 Ur Specific [place] 1.010 Urine Protein Negative Urine Glucose (UA) Normal Urine Ketones Negative Urine Occult Blood Negative Urine Nitrite Negative Urine Bilirubin Negative Urine Urobilinogen Normal Ur Leukocyte Esterase Negative Urine RBC 0 SEEN Urine WBC 0-5 SEEN Ur Squamous Epith Cells 0 SEEN Urine Bacteria 0 SEEN Urine Mucus 0 SEEN Medical Necessity - Tobacco Use Smoking Status: Former smoker Assessment/Plan All Active Problems (Last Updated 02/08/19 @ 21:14 by Zan Liao MD) Abdominal pain (Acute) abdominal pain, left pelvic mass. EGD performed this morning. Patient found to have mild to moderate duodenitis, mild gastritis and mild distal esophagitis. Would continue proton pump inhibitors. Okay with patient having clear liquids. Left pelvic mass- Uncertain etiology The mass in the left pelvis was described as possibly an enlarged lymph node fire etiology. By description, this mass is smooth and does not appear to be invading adjacent structures to me appears to be in the retroperitoneum and displacing the sigmoid colon medially and is inhomogeneous. My initial opinion was possibly a teratoma. Attempt interview CT scan images for similar appearing abnormalities was unsuccessful. other possibilities include ancient schwannoma, myolipoma and retroperitoneal sarcomas. alpha-fetoprotein and beta-hCG are currently pending. The patient denies constitutional symptoms that would make lymphoma possibility and I appreciate no other adenopathy. at this point I plan to contact surgical oncology for their opinion. I would obtain an MRI of the pelvis with and without contrast to better characterize this mass. While I believe this is likely a benign mass, I would wish to talk to our local radiologist. I'm not certain that biopsy is indicated versus just excision of the abnormality en bloc.
--- NOTE | 2019-02-09 10:26 | PCM.DC ---
- Discharge Diagnoses Current Active Problems: Current Active and Chronic Problems (Last Updated 02/08/19 @ 21:14 by Zna Liao MD) Abdominal pain (Acute) You will use the following diet at home:: Regular - avoid fried and oily food Your food should be the consistency of: Regular Discharge Activity: Return to Normal Activity Weight Bearing Status: Weight bearing as tolerated Call your doctor if you observe: Fever of 101 or Higher, Numbness or Tingling, Inability to urinate, Inability to have a bowel movement, Shortness of breath, Dizziness, Fainting spells, Swelling in the ankles, Chest pain, Uncontrolled pain Additional Instructions: Advised MRI Pelvis soft tissue, SI joint for mass on left side of pelvis, cranial to Urinary bladder on CT scan by Dr. Gomez as outpatient in [facility] Allergies/Adverse Reactions: Allergies No Known Allergies Allergy (Verified 02/08/19 17:58) Medications to take at Discharge Hydrocodone Bitart/Apap 5-325 [[place] 5/325] 1 tablet PO Q6H PRN PRN 3 Days #10 tablet 02/07/19 Ondansetron [Zofran Odt] 4 mg PO Q8H PRN PRN #10 tablet 02/07/19 Omeprazole 40 mg PO BID #30 capsule. 02/09/19 The following prescriptions were given: Omeprazole 40 mg PO BID #30 capsule. Primary Care Physician: Care Physician,No Primary [Primary Care Provider] - Please follow up with your Primary Care Physician in: in 2 week Test Results: Test results from this visit will be discussed in further detail at your follow-up appointment, if applicable. Please Follow Up With: Evans Gomez MD When: in 1-2 week
--- NOTE | 2019-02-09 10:30 | DCINST_ITS ---
- Discharge Diagnoses Current Active Problems: Current Active and Chronic Problems (Last Updated 02/08/19 @ 21:14 by Zan Liao MD) Abdominal pain (Acute) You will use the following diet at home:: Regular - avoid fried and oily food Your food should be the consistency of: Regular Discharge Activity: Return to Normal Activity Weight Bearing Status: Weight bearing as tolerated Call your doctor if you observe: Fever of 101 or Higher, Numbness or Tingling, Inability to urinate, Inability to have a bowel movement, Shortness of breath, Dizziness, Fainting spells, Swelling in the ankles, Chest pain, Uncontrolled pain Additional Instructions: Advised MRI Pelvis soft tissue, SI joint for mass on left side of pelvis, cranial to Urinary bladder on CT scan by Dr. Gomez as outpatient in [facility] Allergies/Adverse Reactions: Allergies No Known Allergies Allergy (Verified 02/08/19 17:58) Medications to take at Discharge Hydrocodone Bitart/Apap 5-325 [[place] 5/325] 1 tablet PO Q6H PRN PRN 3 Days #10 tablet 02/07/19 Ondansetron [Zofran Odt] 4 mg PO Q8H PRN PRN #10 tablet 02/07/19 Omeprazole 40 mg PO BID #30 capsule. 02/09/19 The following prescriptions were given: Omeprazole 40 mg PO BID #30 capsule. Primary Care Physician: Care Physician,No Primary [Primary Care Provider] - Please follow up with your Primary Care Physician in: in 2 week Test Results: Test results from this visit will be discussed in further detail at your follow- up appointment, if applicable. Please Follow Up With: Evans Gomez MD When: in 1-2 week
--- NOTE | 2019-02-09 10:30 | PCM.DC.SUM ---
Discharge Date and Diagnosis Date of Admission: 02/08/19 Date of Discharge: 02/09/19 - Primary Discharge Diagnosis Active and Suspected Problems (Last Updated 02/08/19 @ 21:14 by Zan Liao MD) Abdominal pain (Acute) Hospital Course and Treatment Imaging Results: 02/09/19 09:09 MRI Pelvis [Pelvis W/WO Contrast] [MRI] Urgent Summary of Care Provided: The patient is a 28 year old M who was admitted with severe abdominal pain going on for about 6 days with recurrent ER visit on 02/07 and 02/08. Patient had CT abdomen which showed 3.8 cm x 5.4 cm x 3.3 cm mass, evaluate to the urinary bladder on side of left pelvic wall, inhomogeneous possible lymph node origin. The patient was further admitted with general surgery consult to Dr. Martinez. Lipase normal. Patient had EGD was found to have mild to moderate duodenitis, mild gastritis and mild distal esophagitis. Patient is on PPI twice daily since admission. Diet was advanced and patient tolerated liquids and soft diet. For left pelvic mass Which seems enlarged lymph node, possible retroperitoneal, by side of left pelvic wall, Dr. Martinez suggested MRI of pelvis. Since MRI is not done on weekend for routine purposes, Dr. Martinez agreed for MRI pelvis as an outpatient and follow-up in a week or two. Testicular ultrasound is pending. Beta hCG is negative, AFP normal. On exam, there is no obvious testicular swelling, tenderness or loss of sensation. Epididymis not enlarged. Patient agreed to go home. Discharge medication reconciliation done. Discharge follow-up instructions completed. Discharge process discussed with the patient and his and all questions were answered to patient's satisfaction. Patient is discharged on Prilosec 40 mg twice daily for 2 weeks and then once daily. Follow-up with Dr. Martinez in 1 week. Subjective: Seen and examined. Patient had EGD which shows mild duodenitis, mild gastritis and distal esophagitis. No ulcer. Patient had mild abdominal pain which got better since admission. Patient on PPI twice daily. - Physical Exam General: Alert, Oriented x3, Cooperative HEENT: Atraumatic, PERRLA, EOMI, Normocephalic Neck: Supple, No JVD, Negative Carotid Bruits Lungs: Clear to auscultation, Normal air movement Cardiovascular: Regular rate, Regular Rhythm, Normal S1, Normal S2, No murmurs, - - On exam, no swelling of testis, no tenderness or loss of sensation. Epididymis not enlarged. No urethral discharge. Abdomen: Bowel Sounds Present, Soft, Non Tender, Non-Distended Extremities: No edema, Capillary Refill Less than 3 Seconds Skin: No rashes, No breakdown Musculoskeletal: No Tenderness to Palpation of Joints or Extremities Neurological: Cranial nerves II-XII grossly intact Psych/Mental Status: Normal Affect, Appropriate Vital Signs Temp Pulse Resp BP Pulse Ox 97.4 F L 71 18 136/73 H 97 02/09/19 08:15 02/09/19 08:15 02/09/19 08:15 02/09/19 08:15 02/09/19 08:15 Oxygen Delivery Method Room Air Weight: 200 lb 9.93 oz Body Mass Index (BMI) 27.1 Intake and Output for Last 24 Hours 02/07/19 02/08/19 02/09/19 23:59 23:59 23:59 Intake Total 1250 / 1250 Balance 1250 / 1250 Laboratory Tests Past 24 Hrs 02/08/19 02/08/19 02/08/19 18:50 18:50 19:20 WBC 6.9 RBC 5.41 Hgb 16.0 Hct 44.8 MCV 82.8 MCH 29.6 MCHC 35.7 RDW 13.0 RDW Differential 39.1 Plt Count 264 MPV 10.0 Immature Gran % (Auto) 0.100 Neut % (Auto) 68.9 Lymph % (Auto) 16.5 L [place] % (Auto) 12.0 H Eos % (Auto) 2.2 Baso % (Auto) 0.3 Absolute Neuts (auto) 4.8 Absolute Lymphs (auto) 1.14 Total Counted Not Reportable Sodium 138 Potassium 3.7 Chloride 104 Carbon Dioxide 27.0 Anion Gap 7 BUN 15 Creatinine 1.18 Estim Creat Clear Calc 101.38 Est GFR (MDRD) Af Amer 93 Est GFR (MDRD) Non-Af 77 BUN/Creatinine Ratio 12.7 Glucose 99 Calcium 9.0 Total Bilirubin 0.90 AST 16 ALT 46 Alkaline Phosphatase 72 Total Protein 7.7 Albumin 4.5 Globulin 3.2 Albumin/Globulin Ratio 1.4 Lipase 114 Urine Color Yellow Urine Clarity Clear Urine pH 8.0 Ur Specific [place] 1.010 Urine Protein Negative Urine Glucose (UA) Normal Urine Ketones Negative Urine Occult Blood Negative Urine Nitrite Negative Urine Bilirubin Negative Urine Urobilinogen Normal Ur Leukocyte Esterase Negative Urine RBC 0 SEEN Urine WBC 0-5 SEEN Ur Squamous Epith Cells 0 SEEN Urine Bacteria 0 SEEN Urine Mucus 0 SEEN Discharge Activity: Return to Normal Activity Weight Bearing Status: Weight bearing as tolerated Call your doctor if you observe: Fever of 101 or Higher, Numbness or Tingling, Inability to urinate, Inability to have a bowel movement, Shortness of breath, Dizziness, Fainting spells, Swelling in the ankles, Chest pain, Uncontrolled pain Home Medications: Medications to take at Discharge Hydrocodone Bitart/Apap 5-325 [[place] 5/325] 1 tablet PO Q6H PRN PRN 3 Days #10 tablet 02/07/19 Ondansetron [Zofran Odt] 4 mg PO Q8H PRN PRN #10 tablet 02/07/19 Omeprazole 40 mg PO BID #30 capsule. 02/09/19 Following Prescrptions Were Given to Patient: Omeprazole 40 mg PO BID #30 capsule. Primary Care Physician: Care Physician,No Primary [Primary Care Provider] - Please follow up with your Primary Care Physician in: in 2 week Please Follow Up With: Evans Gomez MD When: in 1-2 week Medical Necessity - Tobacco Use Smoking Status: Former smoker Meaningful Use Info Meaningful Use Diagnoses (Choose all that apply): None applicable Code Visit OBSV E&M: 75159 Observation care discharge
== END 2019-02-09 13:38 | disposition home or self-care (01) ==
LOC: ED 19:11 → MS3 21:01
PROVIDERS: Surgery; Admitting Provider Hospitalist; Emergency Provider Emergency Medicine; Visit Provider Internal Medicine
PROC: 0DJ08ZZ Inspection of Upper Intestinal Tract, Via Natural or Artificial Opening Endoscopic (ICD-10-PCS; CPT 43235; principal; 2019-02-09 07:30)
DX: K29.70 Gastritis, unspecified, without bleeding (principal); K29.80 Duodenitis without bleeding; K21.0 Gastro-esophageal reflux disease with esophagitis; R19.00 Intra-abdominal and pelvic swelling, mass and lump, unspecified site; K42.9 Umbilical hernia without obstruction or gangrene; Z87.891 Personal history of nicotine dependence
CPT/HCPCS: 43239; 80053; 81001; 83690; 85025; 88305; 88313; 88342; 96361; 96365; 96366; 96375; 99218; 99282; J7120; A4216; G0378; J2405; J3490

== ENCOUNTER → 2019-09-12 15:14 | Outpatient (CLI) | payer OTHER, SELFPAY ==
[2019-02-09 06:35] VITALS: BMI 27.1
--- NOTE | 2019-09-12 15:18 | US_ITS ---
STUDY: RENAL ULTRASOUND - COMPLETE REASON FOR EXAM: Male, 29 years old. Abdominal pain, recent left ureteral stent. TECHNIQUE: Ultrasound evaluation of the kidneys was performed with real-time and static luu-scale imaging. COMPARISON: CT 02/07/2019 FINDINGS: RIGHT KIDNEY: Normal location of the right kidney, which is normal in size. The right kidney measures 11.3 cm. There is a normal cortex of the right kidney. The renal cortex measures 1.6 cm. There is no right renal mass or cyst. There are no right renal calculi. There is no right hydronephrosis. DISTAL RIGHT URETER: There is non-visualization of the distal right ureter. There is no demonstrated right ureterovesical junction calculus. There is a visualized right ureteral jet. LEFT KIDNEY: Normal location of the left kidney, which is normal in size. The left kidney measures 10.7 cm. There is a normal cortex of the left kidney. The renal cortex measures 2.4 cm. There is no left renal mass or cyst. There are no left renal calculi. There is no left hydronephrosis. DISTAL LEFT URETER: There is non-visualization of the distal left ureter. There is no demonstrated left ureterovesical junction calculus. There is a visualized left ureteral jet. BLADDER: The distended urinary bladder has a volume of 346 ml. The empty urinary bladder has a volume of 42 ml. There is a normal wall thickness of the distended urinary bladder. There is no demonstrated mass within the urinary bladder. There are no demonstrated bladder calculi. US/Kidney and Bladder IMPRESSION: Normal ultrasound of the kidneys and urinary bladder. Electronically Signed: Evans Palmer MD at 16:16 EST Tel , Service support ,
== END ==
PROVIDERS: Family Provider Internal Medicine; PCP Internal Medicine
DX: S37.10XD Unspecified injury of ureter, subsequent encounter (principal)
CPT/HCPCS: 76770